=== PATIENT | male | born 1965 | race Caucasian/White ===

== ENCOUNTER → 2022-11-28 | Outpatient (CLI) | payer OTHER ==
--- NOTE | 2022-11-28 18:36 | CA ---
Exercise Stress Test Report Name: Chang Velásquez Exam Date: 11/28/2022 09:05 Exam Location: [facility] Stress Ht (in): 68 Wt (lb): 165 BSA: 1.88 Ordering Phys: Susan Kirby DO Referring Phys: SUSAN KIRBY,, Technologist: ANGELA,, Age: 57 Gender: M : 1965 Procedure CPT: Indications: I10 HTN ICD-10 Codes: Patient History: Tachycardia Medications: Meds past 24 hrs: Pretest Chest Pain: STRESS TEST Moise Protocol Exercise Duration (min:sec): 07:[address] Depressions (mm): Angina Score: Bach Score: Resting HR (bpm): 90 Peak HR (bpm): 144 Resting BP (mmHg): 159 / 87 Peak BP (mmHg): 189 / 82 MPHR: 165 Target HR: 140 % MPHR: 87 METS: 9.5 Total Dose: Peak Dose: Atropine: Double Product: 53738 BP Response: Stress Termination: Reached target heart rate Stress Symptoms: Syncope Stress Summary: ECG ANALYSIS Resting ECG: Stress ECG: CONCLUSIONS Exercise stress test Baseline heart rate 89 beats a minute, Baseline blood pressure 159/87 mmHg Baseline EKG showed sinus rhythm and normal ST segments Patient exercised on a Moise protocol 7 minutes 21 seconds achieving a peak heart rate of 142 beats a minute. Peak blood pressure 189/82 mmHg No ECG is for ischemia No arrhythmias noted Impression Average exercise capacity Normal heart rate and blood pressure response without any ischemic changes at this workload level Dr. Bruno Escalante MD (Electronically Signed) Final Date: 28 November 2022 18:35
== END | disposition home or self-care (01) ==
LOC: RADNMMAIN 08:45
PROVIDERS: ATTEND Family Medicine
DX: R00.0 Tachycardia, unspecified (principal); I10 Essential (primary) hypertension
CPT/HCPCS: 93017